=== PATIENT | female | born 2005 | race Caucasian/White ===

== ENCOUNTER 2025-03-07 20:17 | Emergency (ER) | payer MEDICAID ==
[~2025-03-07] VITALS: Ht 160 cm; Wt 63.6 kg
[2025-03-07 20:43] VITALS: TEMP 98.1
[2025-03-07 22:35] VITALS: BP 119/77; PULSE 66; RESP 16; O2SAT 98
[2025-03-08] MEDS: ACETAMINOPHEN 325 MG TABLET PO ONE (01:02)
== END 2025-03-08 01:03 | disposition home or self-care (01) ==
LOC: EMS 20:17
DX: S93.401A Sprain of unspecified ligament of right ankle, initial encounter (principal); S90.01XA Contusion of right ankle, initial encounter; F17.210 Nicotine dependence, cigarettes, uncomplicated; X50.1XXA Overexertion from prolonged static or awkward postures, initial encounter; Y92.89 Other specified places as the place of occurrence of the external cause; Y99.8 Other external cause status
CPT/HCPCS: 99284; 73610-TC; 73630-TC; Z7502; Z7610